=== PATIENT | female | born 1990 | race Caucasian/White ===

== ENCOUNTER 2017-08-28 08:30 | Emergency (ER) | payer SELFPAY, MEDICAID ==
[2017-08-28] MEDS: LIDOCAINE 1% (MDV) 10 ML INJ INJ (09:45)
[2017-08-28] MEDS: DIPHTH/TET/ACEL PERTUSS (ADULT) 0.5 ML VIAL IM* (09:59)
== END 2017-08-28 10:27 | disposition left against medical advice (07) ==
LOC: FTE 08:30
DX: S30.860A Insect bite (nonvenomous) of lower back and pelvis, initial encounter (principal); L02.31 Cutaneous abscess of buttock; F17.210 Nicotine dependence, cigarettes, uncomplicated; W57.XXXA Bitten or stung by nonvenomous insect and other nonvenomous arthropods, initial encounter; Y92.9 Unspecified place or not applicable; Z23 Encounter for immunization
CPT/HCPCS: 10061; 90471; 90715; 99284-25

== ENCOUNTER 2017-09-03 15:03 | Emergency (ER) | payer SELFPAY | END 2017-09-03 16:27 | disposition left against medical advice (07) | LOC: FTE 15:03 | DX: Z53.21 Procedure and treatment not carried out due to patient leaving prior to being seen by health care provider (principal) ==